=== PATIENT | male | born 1965 | race Hispanic/Latino ===

== ENCOUNTER → 2018-09-19 | Outpatient (CLI) | payer OTHER ==
[2018-09-19 16:57] LABS: HEMOGLOBIN A1C 6.1 % (4.0-6.0)
[2018-09-19 17:04] LABS: ALBUMIN 3.7 g/dL (3.5-5.0); BILIRUBIN,TOTAL 0.5 mg/dL (0.2-1.0); CREATININE 0.9 mg/dL (0.5-1.5); POTASSIUM 4.7 mmol/L (3.5-5.1); TOTAL PROTEIN, SERUM 7.4 g/dL (6.0-8.3)
== END | disposition home or self-care (01) ==
LOC: RAH 16:13
PROVIDERS: ATTEND Family Medicine
DX: R73.9 Hyperglycemia, unspecified (principal); E78.2 Mixed hyperlipidemia
CPT/HCPCS: 36415; 71046; 80053; 80061; 83036

== ENCOUNTER 2019-01-01 10:37 | Observation (INO) | payer OTHER ==
[~2019-01-01] VITALS: Ht 185.4 cm; Wt 157.1 kg
[2019-01-01 11:03] LABS: BASOPHILS % (AUTO) 0.5 % (0.0-5.0); EOSINOPHILS % (AUTO) 0.1 % (0.0-8.0); LYMPHOCYTES % (AUTO) 16.1 % (21.0-51.0); MEAN CORPUSCULAR HEMOGLOBIN 28.5 pg (27.0-33.0); MEAN CORPUSCULAR HGB CONC 34.1 g/dL (32.0-36.0); MEAN CORPUSCULAR VOLUME 83.5 fL (79-99); MONOCYTES % (AUTO) 5.4 % (3.0-13.0); NEUTROPHILS % (AUTO) 77.9 % (40.0-77.0); PLATELET COUNT (AUTO) 114 K/uL (130-400); RED BLOOD CELL COUNT(AUTO) 5.27 MIL/uL (4.50-6.20); RED CELL DISTRIBUTION WIDTH 13.9 % (11.0-15.5); WHITE BLOOD COUNT (AUTO) 5.2 K/uL (4.8-10.8)
[2019-01-01 11:10] LABS: CREATININE 1.4 mg/dL (0.5-1.5); POTASSIUM 4.2 mmol/L (3.5-5.1)
[2019-01-01 11:14] LABS: ALBUMIN 3.9 g/dL (3.5-5.0); BILIRUBIN,TOTAL 0.5 mg/dL (0.2-1.0); TOTAL PROTEIN, SERUM 7.8 g/dL (6.0-8.3)
[2019-01-01] MEDS ORDERED: ONDANSETRON HCL 4 MG/2 ML VIAL ONE (11:15)
[2019-01-01] MEDS ORDERED: MORPHINE SULFATE 2 MG/ML 1ML SYG ONE (11:16)
[2019-01-01 11:29] LABS: PLATELET MORPHOLOGY COMMENT SLIGHTLY DECREASED
[2019-01-01 12:09] LABS: APPEARANCE,URINE Clear (CLEAR); BILIRUBIN,URINE Negative (NEGATIVE); COLOR,URINE Yellow (YELLOW); GLUCOSE, URINE (UA) Negative (NEGATIVE); KETONES,URINE Trace mg/dL (NEGATIVE); LEUKOCYTE ESTERASE ,URINE Negative (NEGATIVE); NITRATE,URINE Negative (NEGATIVE); OCCULT BLOOD,URINE Negative (NEGATIVE); PROTEIN,URINE Negative (NEGATIVE)
[2019-01-01] MEDS ORDERED: SODIUM CHLORIDE 0.9% 1000ML 1,000 ML IV ONE (16:05)
[2019-01-01] MEDS ORDERED: MEPERIDINE-PF 25 MG/ML SYG IV PRN (16:30)
[2019-01-01] MEDS: SODIUM CHLORIDE 0.9% 1000ML 1,000 ML IV SCH (16:30)
[2019-01-01 20:15] VITALS: BP 151/83
--- NOTE | 2019-01-01 20:50 | NUR ---
ADMIT PT ADMITTED TO ROOM 412, AAOX2. CLAIMS OF ABDOMINAL PAINS MOSTLY ON THE RIGHT LOWER QUADRANT OF THE ABDOMEN. CONTINUED IVF FROM ER OF [facility] REGULATED AT 85CC/HR. PLACED PT ON CLEAR LIQUID DIET. ADMISSION CARE DONE. ADMISSION DATA BASE COMPLETED. MEDICATED WITH DEMEROL AND ZOFRAN IV. KEPT COMFORTABLE IN BED. ORIENTED TO ROOM AND UNIT. IN FOR MORE CARE AND MANAGEMENT. WILL RE-ASSESS PT. Addendum: 01/02/19 at 0031 by KELVER MONTERROSO RN RN Amended: Links added.
[2019-01-01] MEDS: ONDANSETRON HCL 4 MG/2 ML VIAL IVP PRN (20:52)
[2019-01-01] MEDS: MEPERIDINE-PF 50 MG/ML SYG IVP PRN (20:53)
[2019-01-01 23:42] VITALS: BP 129/72
--- NOTE | 2019-01-02 02:00 | NUR ---
ROUNDS PT RESTING WELL. NO DISTRESS NOTED. KEPT UNDISTURBED FOR NOW. WILL MONITOR PT. CALL LIGHT WITHIN REACH. SPOUSE AT BEDSIDE.
[2019-01-02 04:00] VITALS: BP 127/62
[2019-01-02] MEDS: SODIUM CHLORIDE 0.9% 1000ML 1,000 ML IV SCH (04:16)
--- NOTE | 2019-01-02 06:00 | NUR ---
ROUNDS PT RESTING WELL. DENIES ANY CONCERNS AT THIS TIME. NO DISTRESS NOTED. KEPT COMFORTABLE. FOR MORE CARE.
[2019-01-02 08:06] VITALS: BP 146/80
[2019-01-02] MEDS ORDERED: PANTOPRAZOLE 40 MG/VIAL IVP SCH (09:00)
[2019-01-02] MEDS: ONDANSETRON HCL 4 MG/2 ML VIAL IVP PRN ×3 (09:20→23:42)
[2019-01-02] MEDS: FAMOTIDINE/PF 20 MG/2 ML VIAL IV SCH ×2 (09:20→20:56)
[2019-01-02] MEDS: MEPERIDINE-PF 50 MG/ML SYG IVP PRN ×3 (09:20→23:46)
--- NOTE | 2019-01-02 11:00 | NUR ---
GI CONSULT SPOKE TO DR. ARIZMENDI, WILL PLACE ORDERS FOR POSSIBLE COLONOSCOPY PENDING DR. LUTZ'S RECOMMENDATIONS.
[2019-01-02 11:48] VITALS: BP 134/74
--- NOTE | 2019-01-02 13:10 | NUR ---
PER DR. LUTZ, NO SURGICAL INTERVENTION AT THIS TIME.
[2019-01-02 16:00] VITALS: BP 131/69
[2019-01-02] MEDS ORDERED: PEG 3350/NA SULF,BICARB,CL/KCL 4000 ML SOLN PO SCH (17:00)
[2019-01-02 18:13] LABS: BASOPHILS % (AUTO) 0.7 % (0.0-5.0); EOSINOPHILS % (AUTO) 1.9 % (0.0-8.0); LYMPHOCYTES % (AUTO) 33.2 % (21.0-51.0); MEAN CORPUSCULAR HEMOGLOBIN 28.4 pg (27.0-33.0); MEAN CORPUSCULAR HGB CONC 33.2 g/dL (32.0-36.0); MEAN CORPUSCULAR VOLUME 85.6 fL (79-99); MONOCYTES % (AUTO) 10.3 % (3.0-13.0); NEUTROPHILS % (AUTO) 53.9 % (40.0-77.0); NUCLEATED RED BLOOD CELLS 0.1 % (0.0-0.19); PLATELET COUNT (AUTO) 103 K/uL (130-400); RED CELL DISTRIBUTION WIDTH 14.4 % (11.0-15.5); WHITE BLOOD COUNT (AUTO) 5.7 K/uL (4.8-10.8)
[2019-01-02 18:22] LABS: CREATININE 1.8 mg/dL (0.5-1.5); INR 1.08 (0.85-1.15); POTASSIUM 3.9 mmol/L (3.5-5.1); PROTHROMBIN TIME 11.3 SEC (9.6-11.6)
--- NOTE | 2019-01-02 19:05 | NUR ---
cm note met with patient and spouse/family. pt resides at home with spouse, independent with adls/ambulation. no dme/ no services. dc plan is back home at time of dc. no dc needs. Addendum: 01/02/19 at 1906 by QUITA REYES CM Amended: Links added.
[2019-01-02 19:30] VITALS: BP 165/72
--- NOTE | 2019-01-02 20:56 | NUR ---
MEDS SHIFT ASSESSMENT DONE, PLEASE REFER TO CHART. DUE MEDS ADMINISTERED, TOLERATED WELL. CONTINUED GI PREP OF GOLYTELY FOR COLONOSCOPY IN AM. PROVIDED APPLE JUICE KATHLEEN ROSS TO TAKE. INSTRUCTED TO BE NURSING RESIDENT[O POST MN. INSTRUCTED TO FINISH GOLYTELY BEFORE MN. WILL MONITOR PT. Addendum: 01/02/19 at 2149 by KLEVER MONTERROSO RN RN Amended: Links added.
[2019-01-02 23:00] VITALS: BP 147/74
[2019-01-02] MEDS ORDERED: EXCEES PO (23:09)
--- NOTE | 2019-01-02 23:42 | NUR ---
PAIN PT CALLS AND COMPLAINTS OF RT LOWER QUAD OF THE ABDOMEN PAIN. MEDICATED WITH DEMEROL AND ZOFRAN IV. KEPT RESTED AND COMFORTABLE IN BED. STOOL INSPECTED AND NOTED TO STILL HAVE SMALL AMOUNTS OF SEDIMENT AND VERY LIGHT YELLOW IN COLOR. RE-ITERATED TO BE NPO POST MN. WILL RE-ASSESS PT. CALL LIGHT WITHIN REACH. Addendum: 01/03/19 at 0020 by KLEVER MONTERROSO RN RN Amended: Links added.
[2019-01-03] VITALS (21 sets, daily range): BP systolic 142–182; BP diastolic 68–103
--- NOTE | 2019-01-03 02:00 | NUR ---
ROUNDS PT RESTING WELL, SLEPT AT INTERVALS. NO DISTRESS NOTED. KEPT NPO. WILL MONITOR PT. CALL LIGHT WITHIN REACH. SPOUSE ASLEEP AT BEDSIDE.
[2019-01-03] MEDS: SODIUM CHLORIDE 0.9% 1000ML 1,000 ML IV SCH ×2 (03:48→05:29)
--- NOTE | 2019-01-03 05:30 | NUR ---
CONSENT NEW IVF BAG RAFIA. PT SIGNED CONSENT FOR PROCEDURE TODAY, WITNESSED BY COUNSELOR EDUCATION PROFESSOR. FORM PLACED IN CHART. KEPT PT NPO. FOR MORE CARE AND MANAGEMENT.
--- NOTE | 2019-01-03 07:00 | NUR ---
PENDING COLONOSCOPY PER PATIENT, STOOLS ARE LIQUID, "NO SOLID OR CHUNKS", CLEAR GREEN WATER . PER SCHEDULING, COLONOSCOPY AT 6:30AM. WILL CALL DEPARTMENT TO WHEN PATIENT WILL BE TRANSFERRED TO GI LAB.
[2019-01-03] MEDS: FAMOTIDINE/PF 20 MG/2 ML VIAL IV SCH (09:00)
[2019-01-03] MEDS ORDERED: KETOROLAC TROMETHAMINE 30MG/ML IV SCH (09:15)
[2019-01-03] MEDS ORDERED: PROPOFOL 10 MG/ML 20ML VIAL IV ONE (12:46)
--- NOTE | 2019-01-03 18:30 | NUR ---
DISCHARGE DISCHARGE TEACHING DONE WITH PATIENT AND FWIFE USING TEACHBACK METHOD, VERBALIZED UNDERSTANDING. NO NOTED SOB OR DISTRESS. DIET TEACHING DONE WITH PATIENT, VERBALIZED UNDERSTANDING. PT AWARE OF NEED TO SET UP APPOINTMENT WITH DR. WITT AND DR. ARIZMENDI. IV REMOVED, CATH TIP INTACT. PENDING TO BE WHEELED DOWNSTAIRS AND TRANSFER OUT IN PRIVATE VEHICLE.
== END 2019-01-03 18:35 | disposition home or self-care (01) ==
LOC: EDH 10:37 → EDHIP 15:40 → 4BH 19:52
PROVIDERS: ADMIT Family Medicine; ATTEND Family Medicine
DX: K57.90 Diverticulosis of intestine, part unspecified, without perforation or abscess without bleeding (principal); K64.0 First degree hemorrhoids; R11.2 Nausea with vomiting, unspecified; Z90.49 Acquired absence of other specified parts of digestive tract; Z79.899 Other long term (current) drug therapy
CPT/HCPCS: 36415 ×2; 45378; 71046; 74176; 80048; 80053; 81003; 82150; 83690; 85025 ×2; 85610; 87040 ×2; 93005; 96361; 96374; 96375 ×3; 96376 ×2; 99284; G0378 ×50; J1885; J2175 ×4; J2405 ×5; J2704; J3490 ×3; J7030 ×3; C9113

== ENCOUNTER 2020-01-17 18:16 | Emergency (ER) | payer OTHER ==
[~2020-01-17 18:16] MED LIST: EXCEES PO
[2020-01-17] MEDS ORDERED: TETANUS/DIPHTHERIA TOXOID [ADULT] 0.5 ML VIAL IM ONE (18:17)
[2020-01-17 18:53] LABS: BASOPHILS % (AUTO) 0.7 % (0.0-5.0); EOSINOPHILS % (AUTO) 2.4 % (0.0-8.0); MEAN CORPUSCULAR HEMOGLOBIN 27.7 pg (27.0-33.0); MEAN CORPUSCULAR HGB CONC 32.3 g/dL (32.0-36.0); MEAN CORPUSCULAR VOLUME 85.7 fL (79-99); MONOCYTES % (AUTO) 7.1 % (3.0-13.0); NEUTROPHILS % (AUTO) 38.6 % (40.0-77.0); PLATELET COUNT (AUTO) 143 K/uL (130-400); RED BLOOD CELL COUNT(AUTO) 5.02 MIL/uL (4.50-6.20); RED CELL DISTRIBUTION WIDTH 14.3 % (11.0-15.5); WHITE BLOOD COUNT (AUTO) 5.8 K/uL (4.8-10.8)
[2020-01-17 19:08] LABS: CARBON DIOXIDE 28 mmol/L (21-32); CHLORIDE 107 mmol/L (101-111); CREATININE 1.1 mg/dL (0.5-1.5); GLOMERULAR FILTR. RATE CALC 73 mL/min (>60); GLUCOSE,RANDOM 101 mg/dL (70-105); INR 0.99 (0.85-1.15); PARTIAL THROMBOPLASTIN TIME 26.4 SEC (26.3-35.5); PROTHROMBIN TIME 10.7 SEC (9.6-11.6); SODIUM SERUM 141 mmol/L (136-145); UREA NITROGEN, BLOOD 17 mg/dL (7-18)
[2020-01-17 19:11] LABS: APPEARANCE,URINE Clear (CLEAR); BILIRUBIN,URINE Negative (NEGATIVE); COLOR,URINE Dark Yellow (YELLOW); GLUCOSE, URINE (UA) Negative (NEGATIVE); KETONES,URINE Negative (NEGATIVE); LEUKOCYTE ESTERASE ,URINE Negative (NEGATIVE); NITRATE,URINE Negative (NEGATIVE); OCCULT BLOOD,URINE Negative (NEGATIVE); PROTEIN,URINE Negative (NEGATIVE)
[2020-01-17 19:14] LABS: ALANINE AMINOTRANSFERASE 50 U/L (12-78); ALBUMIN 3.7 g/dL (3.5-5.0); ALCOHOL, BLOOD < 3 mg/dL (0-10); AMYLASE 35 U/L (25-115); ASPARTATE AMINOTRANSFERASE 28 U/L (10-37); BILIRUBIN,TOTAL 0.3 mg/dL (0.2-1.0); CREATINE KINASE, TOTAL 175 U/L (21-232); LIPASE 97 U/L (114-286); TOTAL PROTEIN, SERUM 7.3 g/dL (6.0-8.3)
[2020-01-17 19:20] LABS: AMPHET/METH SCREEN,URINE NEGATIVE (NEGATIVE); BARBITURATE SCREEN, URINE NEGATIVE (NEGATIVE); BENZODIAZEPINES SCREEN,URINE NEGATIVE (NEGATIVE); CANNABINOID SCREEN,URINE NEGATIVE (NEGATIVE); COCAINE SCREEN,URINE NEGATIVE (NEGATIVE); OPIATE SCREEN,URINE NEGATIVE (NEGATIVE); PHENCYCLIDINE SCREEN,URINE NEGATIVE (NEGATIVE)
[2020-01-17] MEDS ORDERED: KETOROLAC TROMETHAMINE 30MG/ML ONE (20:22)
[2020-01-17] MEDS ORDERED: CYCLOBENZAPRINE HCL 10 MG TABLET ONE (20:23)
== END 2020-01-17 21:00 | disposition home or self-care (01) ==
LOC: EDH 18:16
DX: S00.83XA Contusion of other part of head, initial encounter (principal); M54.2 Cervicalgia; R20.0 Anesthesia of skin; R03.0 Elevated blood-pressure reading, without diagnosis of hypertension; Z90.49 Acquired absence of other specified parts of digestive tract; W20.8XXA Other cause of strike by thrown, projected or falling object, initial encounter; Y93.89 Activity, other specified; Y92.89 Other specified places as the place of occurrence of the external cause; Y99.8 Other external cause status
CPT/HCPCS: 36415; 70450; 72125; 80053; 80305; 81003; 82150; 82550; 83690; 84484; 85025; 85610; 85730; 90471; 90714; 93005; 96374; 99285; J1885

== ENCOUNTER 2020-04-21 00:07 | Inpatient (IN) | payer OTHER ==
[~2020-04-21] VITALS: Ht 185.4 cm; Wt 158.3 kg
[2020-04-21 00:24] LABS: BASOPHILS % (AUTO) 0.9 % (0.0-5.0); EOSINOPHILS % (AUTO) 2.9 % (0.0-8.0); HEMATOCRIT 42.3 % (42-54); MEAN CORPUSCULAR HEMOGLOBIN 27.6 pg (27.0-33.0); MEAN CORPUSCULAR HGB CONC 33.3 g/dL (32.0-36.0); MEAN CORPUSCULAR VOLUME 82.9 fL (79-99); MONOCYTES % (AUTO) 6.5 % (3.0-13.0); NEUTROPHILS % (AUTO) 40.8 % (40.0-77.0); PLATELET COUNT (AUTO) 124 K/uL (130-400); RED CELL DISTRIBUTION WIDTH 13.7 % (11.0-15.5)
[2020-04-21 00:34] LABS: CREATININE 1.1 mg/dL (0.5-1.5); POTASSIUM 4.2 mmol/L (3.5-5.1)
[2020-04-21 00:36] LABS: INR 1.02 (0.85-1.15); PROTHROMBIN TIME 10.9 SEC (9.6-11.6)
[2020-04-21 00:38] LABS: ALBUMIN 3.4 g/dL (3.5-5.0); BILIRUBIN,TOTAL 0.4 mg/dL (0.2-1.0); PARTIAL THROMBOPLASTIN TIME 21.9 SEC (26.3-35.5); TOTAL PROTEIN, SERUM 7.3 g/dL (6.0-8.3)
[2020-04-21] MEDS ORDERED: NITROGLYCERIN 1GM/1 INCH PACKET TD ONE (00:42)
[2020-04-21] MEDS ORDERED: ASPIRIN 325 MG TABLET ONE (00:42)
[2020-04-21] MEDS ORDERED: ONDANSETRON HCL 4 MG/2 ML VIAL ONE (00:42)
[2020-04-21] MEDS ORDERED: MAG HYDROX/AL HYDROX/SIMETH ES 30 ML SUSP UDCUP PO PRN (03:30)
[2020-04-21] MEDS: SODIUM CHLORIDE 0.9% 1000ML 1,000 ML IV SCH ×2 (03:30→17:17)
[2020-04-21] MEDS ORDERED: DiphenhydrAMINE HCL 50 MG/ML VIAL IV PRN (03:30)
[2020-04-21] MEDS ORDERED: ONDANSETRON HCL 4 MG/2 ML VIAL IV PRN (03:30)
[2020-04-21] MEDS ORDERED: ZOLPIDEM TARTRATE 5 MG TAB PO PRN (03:30)
[2020-04-21] MEDS ORDERED: ACETAMINOPHEN 325 MG TAB PO PRN (03:30)
[2020-04-21] MEDS: NITROGLYCERIN 1GM/1 INCH PACKET TD SCH ×3 (03:45→19:45)
[2020-04-21] MEDS ORDERED: HYDRALAZINE HCL 20 MG/ML VIAL IV PRN (03:45)
[2020-04-21 04:08] LABS: CHOLESTEROL 249 mg/dL (<200); HDL CHOLESTEROL 135 mg/dL (29-71); LDL DIRECT 158 mg/dL (0-99); TRIGLYCERIDES 237 mg/dL (30-200)
[2020-04-21] MEDS ORDERED: ACETAMINOPHEN 325 MG TAB ONE (07:32)
[2020-04-21] MEDS ORDERED: ASPIRIN 81MG TAB.CHEW ONE (08:57)
[2020-04-21] MEDS ORDERED: HEPARIN SODIUM 5000UNIT/ML 1ML VIAL ONE (08:57)
[2020-04-21] MEDS ORDERED: ASPIRIN 81 MG EC TAB PO SCH (09:00)
[2020-04-21] MEDS: FAMOTIDINE 20MG TAB 20 MG TAB PO SCH ×2 (09:00→20:25)
[2020-04-21] MEDS: HEPARIN SODIUM 5000UNIT/ML 1ML VIAL SQ SCH ×2 (09:00→20:26)
[2020-04-21] MEDS ORDERED: METOPROLOL SUCCINATE 50 MG TAB.SR.24H PO SCH (11:00)
[2020-04-21] MEDS ORDERED: REGADENOSON 0.4 MG/5 ML PF SYG IVP SCH (11:30)
[2020-04-21 12:21] VITALS: BP 129/69
[2020-04-21] MEDS ORDERED: PANT20TA18 PO (12:23)
[2020-04-21] MEDS ORDERED: METO25TA6 PO (12:23)
[2020-04-21] MEDS ORDERED: ASPI-1197 PO (12:23)
[2020-04-21] MEDS ORDERED: EXCEDRIN EXTRA STRENGTH PO PRN (13:00)
[2020-04-21] MEDS ORDERED: IOHEXOL 350 MG/ML 100ML INFUS..BTL IV ONE (14:00)
[2020-04-21 19:45] VITALS: BP 121/51
[2020-04-21] MEDS: METOPROLOL TARTRATE 25 MG TAB PO SCH (20:25)
[2020-04-21] MEDS: ATORVASTATIN CALCIUM 40 MG TABLET PO SCH (20:25)
[2020-04-21] MEDS: ENOXAPARIN SODIUM 120 MG/0.8ML SQ SCH (20:26)
[2020-04-21] MEDS: ENOXAPARIN SODIUM 30 MG/0.3 ML SQ SCH (20:27)
[2020-04-21] MEDS ORDERED: ATORVASTATIN CALCIUM 20 MG TABLET PO SCH (21:00)
[2020-04-21 23:12] VITALS: BP 131/64
[2020-04-22] MEDS: NITROGLYCERIN 1GM/1 INCH PACKET TD SCH ×3 (02:55→19:45)
[2020-04-22 03:12] VITALS: BP 133/70
[2020-04-22] MEDS: SODIUM CHLORIDE 0.9% 1000ML 1,000 ML IV SCH ×3 (03:42→22:38)
[2020-04-22 06:13] LABS: EOSINOPHILS % (AUTO) 2.8 % (0.0-8.0); HEMATOCRIT 40.9 % (42-54); LYMPHOCYTES % (AUTO) 47.9 % (21.0-51.0); MEAN CORPUSCULAR HEMOGLOBIN 27.1 pg (27.0-33.0); MEAN CORPUSCULAR HGB CONC 32.5 g/dL (32.0-36.0); MEAN CORPUSCULAR VOLUME 83.5 fL (79-99); MONOCYTES % (AUTO) 5.6 % (3.0-13.0); NEUTROPHILS % (AUTO) 42.2 % (40.0-77.0); PLATELET COUNT (AUTO) 168 K/uL (130-400); RED CELL DISTRIBUTION WIDTH 13.6 % (11.0-15.5); WHITE BLOOD COUNT (AUTO) 6.1 K/uL (4.8-10.8)
[2020-04-22 06:28] LABS: CREATININE 1.1 mg/dL (0.5-1.5); POTASSIUM 3.7 mmol/L (3.5-5.1)
[2020-04-22 07:45] VITALS: BP 152/74
[2020-04-22] MEDS: METOPROLOL TARTRATE 25 MG TAB PO SCH ×2 (09:05→20:46)
[2020-04-22] MEDS: ASPIRIN 81MG TAB.CHEW PO SCH (10:48)
[2020-04-22] MEDS: FAMOTIDINE 20MG TAB 20 MG TAB PO SCH ×2 (10:49→20:46)
[2020-04-22] MEDS: ENOXAPARIN SODIUM 30 MG/0.3 ML SQ SCH ×2 (10:55→20:47)
[2020-04-22] MEDS: ENOXAPARIN SODIUM 120 MG/0.8ML SQ SCH ×2 (10:56→20:47)
[2020-04-22 16:30] VITALS: BP 134/67
[2020-04-22 19:55] VITALS: BP 138/69
[2020-04-22] MEDS: ATORVASTATIN CALCIUM 40 MG TABLET PO SCH (20:46)
[2020-04-23 00:23] VITALS: BP 144/74
[2020-04-23] MEDS: NITROGLYCERIN 1GM/1 INCH PACKET TD SCH ×3 (02:10→19:45)
[2020-04-23 03:52] VITALS: BP 144/72
[2020-04-23] MEDS: MORPHINE SULFATE 2 MG/ML 1ML SYG IV PRN ×3 (04:08→20:08)
[2020-04-23 05:06] LABS: BASOPHILS % (AUTO) 0.9 % (0.0-5.0); EOSINOPHILS % (AUTO) 3.5 % (0.0-8.0); HEMATOCRIT 38.8 % (42-54); MEAN CORPUSCULAR HEMOGLOBIN 27.3 pg (27.0-33.0); MEAN CORPUSCULAR HGB CONC 32.7 g/dL (32.0-36.0); MEAN CORPUSCULAR VOLUME 83.4 fL (79-99); MONOCYTES % (AUTO) 7.1 % (3.0-13.0); NEUTROPHILS % (AUTO) 35.9 % (40.0-77.0); PLATELET COUNT (AUTO) 159 K/uL (130-400); RED BLOOD CELL COUNT(AUTO) 4.65 MIL/uL (4.50-6.20); RED CELL DISTRIBUTION WIDTH 13.3 % (11.0-15.5); WHITE BLOOD COUNT (AUTO) 5.4 K/uL (4.8-10.8)
[2020-04-23 05:25] LABS: INR 1.1 (0.85-1.15); PROTHROMBIN TIME 11.7 SEC (9.6-11.6)
[2020-04-23 05:27] LABS: PARTIAL THROMBOPLASTIN TIME 33.6 SEC (26.3-35.5)
[2020-04-23 05:32] LABS: ALBUMIN 3.1 g/dL (3.5-5.0); BILIRUBIN,TOTAL 0.6 mg/dL (0.2-1.0); CREATININE 1.2 mg/dL (0.5-1.5); MAGNESIUM 1.9 mg/dL (1.80-2.40); PHOSPHORUS 3.5 mg/dL (2.5-4.9); POTASSIUM 4.1 mmol/L (3.5-5.1); TOTAL PROTEIN, SERUM 6.6 g/dL (6.0-8.3)
[2020-04-23] MEDS: SODIUM CHLORIDE 0.9% 1000ML 1,000 ML IV SCH ×2 (06:13→20:44)
[2020-04-23 09:05] VITALS: BP 143/74
[2020-04-23] MEDS: ASPIRIN 81MG TAB.CHEW PO SCH (10:29)
[2020-04-23] MEDS: METOPROLOL TARTRATE 25 MG TAB PO SCH ×2 (10:29→20:45)
[2020-04-23] MEDS: FAMOTIDINE 20MG TAB 20 MG TAB PO SCH ×2 (10:29→20:45)
[2020-04-23 12:00] VITALS: BP 131/72
[2020-04-23] MEDS ORDERED: ENOXAPARIN SODIUM 120 MG/0.8ML SQ SCH (12:30)
[2020-04-23 16:00] VITALS: BP 141/72
[2020-04-23 20:00] VITALS: BP 166/86
[2020-04-23] MEDS: APIXABAN 5 MG TABLET PO SCH (20:44)
[2020-04-23] MEDS: ATORVASTATIN CALCIUM 40 MG TABLET PO SCH (20:45)
[2020-04-24] VITALS: BP 124/65
[2020-04-24] MEDS: NITROGLYCERIN 1GM/1 INCH PACKET TD SCH ×2 (03:45→12:56)
[2020-04-24 04:04] VITALS: BP 157/72
[2020-04-24 05:39] LABS: HEMATOCRIT 38.9 % (42-54); MEAN CORPUSCULAR HEMOGLOBIN 27.1 pg (27.0-33.0); MEAN CORPUSCULAR HGB CONC 32.9 g/dL (32.0-36.0); MEAN CORPUSCULAR VOLUME 82.4 fL (79-99); RED BLOOD CELL COUNT(AUTO) 4.72 MIL/uL (4.50-6.20); RED CELL DISTRIBUTION WIDTH 13.2 % (11.0-15.5); WHITE BLOOD COUNT (AUTO) 5.4 K/uL (4.8-10.8)
[2020-04-24 05:45] LABS: CREATININE 1.1 mg/dL (0.5-1.5); POTASSIUM 3.7 mmol/L (3.5-5.1)
[2020-04-24 08:23] VITALS: BP 147/81
[2020-04-24] MEDS: METOPROLOL TARTRATE 25 MG TAB PO SCH (09:00)
[2020-04-24] MEDS: APIXABAN 5 MG TABLET PO SCH (09:33)
[2020-04-24] MEDS: ASPIRIN 81MG TAB.CHEW PO SCH (09:34)
[2020-04-24] MEDS: FAMOTIDINE 20MG TAB 20 MG TAB PO SCH (09:34)
[2020-04-24] MEDS ORDERED: TRAMADOL HCL 50 MG TABLET PO PRN ×2 (11:00→11:15)
[2020-04-24] MEDS ORDERED: KETOROLAC TROMETHAMINE 30MG/ML IM SCH ×2 (11:00→11:15)
[2020-04-24] MEDS ORDERED: APIX5TAB PO (11:00)
[2020-04-24 11:25] VITALS: BP 148/84
[2020-04-24 11:27] VITALS: BP 145/79
[2020-04-24 11:30] VITALS: BP 146/77
[2020-04-24] MEDS ORDERED: IBUP-2070 PO (12:55)
== END 2020-04-24 18:59 | disposition home or self-care (01) | DRG 176 ==
LOC: EDH 00:07 → OBSVTOIN 03:25 → EDHIP 03:25 → 3DH 11:56 → 3BH 04-23 09:28
PROVIDERS: ADMIT Internal Medicine Critical Care Medicine; ATTEND Internal Medicine Critical Care Medicine
DX: I26.99 Other pulmonary embolism without acute cor pulmonale (principal); I20.0 Unstable angina; Z68.42 Body mass index [BMI] 45.0-49.9, adult; I82.402 Acute embolism and thrombosis of unspecified deep veins of left lower extremity; I50.22 Chronic systolic (congestive) heart failure; E66.2 Morbid (severe) obesity with alveolar hypoventilation; K29.70 Gastritis, unspecified, without bleeding; E78.2 Mixed hyperlipidemia; M94.0 Chondrocostal junction syndrome [Tietze]; R74.01 Elevation of levels of liver transaminase levels; I11.0 Hypertensive heart disease with heart failure; R73.03 Prediabetes; M54.9 Dorsalgia, unspecified; Z20.822 Contact with and (suspected) exposure to COVID-19; Z90.49 Acquired absence of other specified parts of digestive tract; Z86.718 Personal history of other venous thrombosis and embolism; Z86.711 Personal history of pulmonary embolism; Z79.899 Other long term (current) drug therapy; Z83.3 Family history of diabetes mellitus; Z82.49 Family history of ischemic heart disease and other diseases of the circulatory system; Z83.49 Family history of other endocrine, nutritional and metabolic diseases
CPT/HCPCS: 36415; 71045; 71275; 78452; 80048; 80053; 80061; 82550; 83036; 83690; 83735; 83880; 84100; 84439; 84443; 84484; 85025; 85027; 85378; 85610; 85730; 87426; 93005; 93017; 93306; 93356; 93970; 94760; 96374; A9500; G0378; J1644; J1650; J1885; J2405; J2785; J7030; Q9967; U0003

== ENCOUNTER 2020-06-24 06:37 | Observation (INO) | payer OTHER ==
[~2020-06-24] VITALS: Ht 185.4 cm; Wt 140.2 kg
[~2020-06-24 06:37] MED LIST changes: +APIX5TAB PO; +ASPI-1197 PO; -EXCEES PO; +IBUP-2070 PO; +METO25TA6 PO; +PANT20TA18 PO
[2020-06-24] MEDS ORDERED: ASPIRIN 325 MG TABLET ONE (06:56)
[2020-06-24 06:58] LABS: BASOPHILS % (AUTO) 0.6 % (0.0-5.0); EOSINOPHILS % (AUTO) 2.2 % (0.0-8.0); HEMATOCRIT 44.6 % (42-54); LYMPHOCYTES % (AUTO) 51.3 % (21.0-51.0); MEAN CORPUSCULAR HEMOGLOBIN 27.4 pg (27.0-33.0); MEAN CORPUSCULAR HGB CONC 32.5 g/dL (32.0-36.0); MEAN CORPUSCULAR VOLUME 84.2 fL (79-99); MONOCYTES % (AUTO) 8.6 % (3.0-13.0); NEUTROPHILS % (AUTO) 36.7 % (40.0-77.0); PLATELET COUNT (AUTO) 153 K/uL (130-400); RED CELL DISTRIBUTION WIDTH 13.1 % (11.0-15.5); WHITE BLOOD COUNT (AUTO) 6.7 K/uL (4.8-10.8)
[2020-06-24 07:08] LABS: INR 1.06 (0.85-1.15); PROTHROMBIN TIME 11.5 SEC (9.6-11.6)
[2020-06-24 07:09] LABS: PARTIAL THROMBOPLASTIN TIME 28.6 SEC (26.3-35.5)
[2020-06-24 07:15] LABS: ALBUMIN 3.5 g/dL (3.5-5.0); BILIRUBIN,TOTAL 0.5 mg/dL (0.2-1.0); CREATININE 1.1 mg/dL (0.5-1.5); POTASSIUM 3.9 mmol/L (3.5-5.1); TOTAL PROTEIN, SERUM 7.2 g/dL (6.0-8.3)
[2020-06-24 08:44] LABS: APPEARANCE,URINE Clear (CLEAR); BILIRUBIN,URINE Small (NEGATIVE); COLOR,URINE Dark Yellow (YELLOW); GLUCOSE, URINE (UA) Negative (NEGATIVE); KETONES,URINE Negative (NEGATIVE); LEUKOCYTE ESTERASE ,URINE Negative (NEGATIVE); NITRATE,URINE Negative (NEGATIVE); OCCULT BLOOD,URINE Negative (NEGATIVE); PH,URINE 5.5 (5.0-8.0); PROTEIN,URINE Negative (NEGATIVE)
[2020-06-24] MEDS ORDERED: KCL 20 MEQ ERTAB PO PRN (09:30)
[2020-06-24] MEDS ORDERED: MAGNESIUM 2GM PREMIX 50ML 50 ML IV PRN (09:30)
[2020-06-24] MEDS ORDERED: POTASSIUM CHLORIDE 10% ELIXIR 20 MEQ/15 ML UDCUP PO PRN (09:30)
[2020-06-24] MEDS ORDERED: LIDOCAINE HCL-MPF 1% 2ML VIAL IV PRN ×2 (09:30)
[2020-06-24] MEDS ORDERED: POTASSIUM CHLORIDE 20MEQ/100ML 100 ML IV PRN ×2 (09:30)
[2020-06-24] MEDS ORDERED: IOHEXOL-350 75 ML VIAL IV ONE (16:08)
[2020-06-24] MEDS ORDERED: PHARMACY COMMUNICATION MISC SCH (17:00)
[2020-06-24] MEDS ORDERED: COMPOUND PO MISCELLANEOUS 1 EACH MISC MISC PRN (17:15)
[2020-06-24] MEDS ORDERED: LIDO 2% VISC 30ML+MAG/AL/SIMETH 30ML+DICYCLOMINE 20MG 10ML PO PRN ×3 (17:15)
[2020-06-24] MEDS: METOPROLOL TARTRATE 25 MG TAB PO SCH (20:28)
[2020-06-24] MEDS: APIXABAN 5 MG TABLET PO SCH (20:28)
[2020-06-24] MEDS: LISINOPRIL 10 MG TABLET PO SCH (20:29)
[2020-06-24 20:36] VITALS: BP 147/70
[2020-06-24 20:55] VITALS: BP 147/70
[2020-06-25 00:31] VITALS: BP 134/64
[2020-06-25] MEDS ORDERED: VITAMIN D (03:28)
[2020-06-25] MEDS ORDERED: LISI10TA24 PO (03:28)
[2020-06-25 05:16] LABS: MEAN CORPUSCULAR HEMOGLOBIN 27.9 pg (27.0-33.0); MEAN CORPUSCULAR HGB CONC 33.5 g/dL (32.0-36.0); MEAN CORPUSCULAR VOLUME 83.2 fL (79-99); RED BLOOD CELL COUNT(AUTO) 4.81 MIL/uL (4.50-6.20); RED CELL DISTRIBUTION WIDTH 12.7 % (11.0-15.5); WHITE BLOOD COUNT (AUTO) 4.8 K/uL (4.8-10.8)
[2020-06-25 05:33] LABS: CREATININE 1.1 mg/dL (0.5-1.5); POTASSIUM 3.7 mmol/L (3.5-5.1)
[2020-06-25 05:44] VITALS: BP 132/65
[2020-06-25] MEDS: LEVOTHYROXINE 25 MCG TABLET PO SCH (06:31)
[2020-06-25] MEDS: PANTOPRAZOLE 40 MG TAB DR PO SCH (07:07)
[2020-06-25 07:57] VITALS: BP 133/75
[2020-06-25] MEDS: ASPIRIN 81 MG EC TAB PO SCH (08:22)
[2020-06-25] MEDS: METOPROLOL TARTRATE 25 MG TAB PO SCH ×2 (08:22→20:31)
[2020-06-25] MEDS: APIXABAN 5 MG TABLET PO SCH ×2 (08:23→20:31)
[2020-06-25 11:46] VITALS: BP 135/79
[2020-06-25 16:00] VITALS: BP 131/66
[2020-06-25 20:00] VITALS: BP 162/78
[2020-06-25] MEDS: LISINOPRIL 10 MG TABLET PO SCH (20:31)
[2020-06-26] VITALS: BP 137/70
[2020-06-26] MEDS ORDERED: ACETAMINOPHEN 325 MG TAB ONE (03:40)
[2020-06-26] MEDS ORDERED: ACETAMINOPHEN 325 MG TAB PO PRN (03:45)
[2020-06-26 03:47] VITALS: BP 119/56
[2020-06-26 04:30] LABS: HEMATOCRIT 41.4 % (42-54); MEAN CORPUSCULAR HEMOGLOBIN 27.6 pg (27.0-33.0); MEAN CORPUSCULAR HGB CONC 33.1 g/dL (32.0-36.0); MEAN CORPUSCULAR VOLUME 83.3 fL (79-99); RED BLOOD CELL COUNT(AUTO) 4.97 MIL/uL (4.50-6.20); RED CELL DISTRIBUTION WIDTH 12.9 % (11.0-15.5); WHITE BLOOD COUNT (AUTO) 5.1 K/uL (4.8-10.8)
[2020-06-26 04:47] LABS: MAGNESIUM 1.9 mg/dL (1.80-2.40); POTASSIUM 3.6 mmol/L (3.5-5.1)
[2020-06-26] MEDS: LEVOTHYROXINE 25 MCG TABLET PO SCH (06:08)
[2020-06-26] MEDS: PANTOPRAZOLE 40 MG TAB DR PO SCH (07:46)
[2020-06-26 08:00] VITALS: BP 132/54
[2020-06-26] MEDS: METOPROLOL TARTRATE 25 MG TAB PO SCH (09:07)
[2020-06-26] MEDS: ASPIRIN 81 MG EC TAB PO SCH (09:07)
[2020-06-26] MEDS: APIXABAN 5 MG TABLET PO SCH (09:07)
[2020-06-26 12:00] VITALS: BP 122/52
[2020-06-26 16:00] VITALS: BP 164/92
[2020-06-26] MEDS ORDERED: LEVO25TA9 PO (17:48)
[2020-08-12] MEDS ORDERED: METO25TA6 PO (11:43)
[2020-08-12] MEDS ORDERED: PANT40TA PO (11:43)
== END 2020-06-26 18:11 | disposition home or self-care (01) ==
LOC: EDH 06:37 → EDHIP 09:21 → 4DH 19:41
PROVIDERS: ADMIT Internal Medicine Critical Care Medicine; ATTEND Internal Medicine Critical Care Medicine
DX: R07.89 Other chest pain (principal); Z20.822 Contact with and (suspected) exposure to COVID-19; R00.2 Palpitations; I47.1 Supraventricular tachycardia; D68.59 Other primary thrombophilia; I10 Essential (primary) hypertension; E66.01 Morbid (severe) obesity due to excess calories; K21.9 Gastro-esophageal reflux disease without esophagitis; E03.9 Hypothyroidism, unspecified; E78.5 Hyperlipidemia, unspecified; F32.9 Major depressive disorder, single episode, unspecified; G47.33 Obstructive sleep apnea (adult) (pediatric); Z86.711 Personal history of pulmonary embolism; Z86.718 Personal history of other venous thrombosis and embolism; Z90.49 Acquired absence of other specified parts of digestive tract; Z79.01 Long term (current) use of anticoagulants; Z79.82 Long term (current) use of aspirin; Z79.899 Other long term (current) drug therapy; Z68.41 Body mass index [BMI] 40.0-44.9, adult
CPT/HCPCS: 36415 ×3; 71045; 71275; 80048 ×2; 80053; 81003; 82550; 83735; 83880; 84443; 84484 ×3; 85025; 85027 ×2; 85378; 85610; 85730; 87426; 93005; 93306; 93356; 93970; 94760 ×2; 99285; G0378 ×56; Q9967

== ENCOUNTER → 2020-07-26 | Outpatient (CLI) | payer OTHER ==
[~2020-07-26] MED LIST changes: +LEVO25TA9 PO; +LISI10TA24 PO; +VITAMIN D
[2020-07-26 13:55] LABS: BASOPHILS % (AUTO) 0.8 % (0.0-5.0); EOSINOPHILS % (AUTO) 3.2 % (0.0-8.0); HEMATOCRIT 44.5 % (42-54); LYMPHOCYTES % (AUTO) 48.3 % (21.0-51.0); MEAN CORPUSCULAR HGB CONC 31.9 g/dL (32.0-36.0); MEAN CORPUSCULAR VOLUME 84.6 fL (79-99); MONOCYTES % (AUTO) 8.4 % (3.0-13.0); NEUTROPHILS % (AUTO) 38.7 % (40.0-77.0); PLATELET COUNT (AUTO) 161 K/uL (130-400); RED BLOOD CELL COUNT(AUTO) 5.26 MIL/uL (4.50-6.20); RED CELL DISTRIBUTION WIDTH 13.3 % (11.0-15.5)
[2020-07-26 14:08] LABS: HEMOGLOBIN A1C 6.1 % (4.0-6.0)
[2020-07-26 14:56] LABS: ALBUMIN 3.6 g/dL (3.5-5.0); BILIRUBIN,TOTAL 0.3 mg/dL (0.2-1.0); POTASSIUM 4.4 mmol/L (3.5-5.1); T4 (THYROXINE) 7.4 ug/dL (4.7-13.3); THYROID STIMULATING HORMONE 2.63 uIU/mL (0.36-3.74)
== END | disposition home or self-care (01) ==
LOC: RAH 12:51
PROVIDERS: ATTEND Family Medicine
DX: R00.1 Bradycardia, unspecified (principal)
CPT/HCPCS: 36415; 80053; 80061; 82306; 82607; 83036; 84436; 84443; 84479; 85025

== ENCOUNTER → 2020-08-12 | Day surgery (SDC) | payer OTHER ==
[~2020-08-12] VITALS: Ht 185.4 cm; Wt 159.7 kg
[~2020-08-12] MED LIST changes: +LIDOCAINE HCL 1% 20 ML VIAL ONE; +PANT40TA PO; +PROPOFOL 10 MG/ML 20ML VIAL IV ONE; +SODIUM CHLORIDE 0.9% 1000ML 1,000 ML IV ONE
[2020-08-12 11:00] VITALS: BP 134/72
[2020-08-12 12:43] VITALS: BP 153/69
[2020-08-12 12:48] VITALS: BP 151/70
[2020-08-12 12:53] VITALS: BP 149/70
[2020-08-12 12:58] VITALS: BP 148/69
== END | disposition home or self-care (01) ==
LOC: ENDO 10:31
PROVIDERS: ATTEND Internal Medicine Gastroenterology
DX: K21.00 Gastro-esophageal reflux disease with esophagitis, without bleeding (principal); Z20.822 Contact with and (suspected) exposure to COVID-19; K29.00 Acute gastritis without bleeding; I10 Essential (primary) hypertension; E66.9 Obesity, unspecified; E03.9 Hypothyroidism, unspecified; I25.10 Atherosclerotic heart disease of native coronary artery without angina pectoris; I25.2 Old myocardial infarction; J45.909 Unspecified asthma, uncomplicated; R19.7 Diarrhea, unspecified; Z90.49 Acquired absence of other specified parts of digestive tract; Z87.891 Personal history of nicotine dependence; Z86.718 Personal history of other venous thrombosis and embolism; Z79.01 Long term (current) use of anticoagulants; Z79.82 Long term (current) use of aspirin; Z86.73 Personal history of transient ischemic attack (TIA), and cerebral infarction without residual deficits; Z82.49 Family history of ischemic heart disease and other diseases of the circulatory system; Z83.3 Family history of diabetes mellitus; Z80.41 Family history of malignant neoplasm of ovary; Z80.42 Family history of malignant neoplasm of prostate; Z80.1 Family history of malignant neoplasm of trachea, bronchus and lung; Z72.89 Other problems related to lifestyle; Z68.42 Body mass index [BMI] 45.0-49.9, adult
CPT/HCPCS: 43235; 87426; A4215; A4221; A4223; A4606; A4620; A4663; J2704; J7030 ×2; U0003

== ENCOUNTER → 2020-10-28 | Outpatient (CLI) | payer OTHER ==
[~2020-10-28] MED LIST changes: -IBUP-2070 PO; -LIDOCAINE HCL 1% 20 ML VIAL ONE; -PANT20TA18 PO; -PROPOFOL 10 MG/ML 20ML VIAL IV ONE; -SODIUM CHLORIDE 0.9% 1000ML 1,000 ML IV ONE
== END | disposition home or self-care (01) ==
LOC: RAH 13:41
PROVIDERS: ATTEND Internal Medicine Cardiovascular Disease
DX: I26.90 Septic pulmonary embolism without acute cor pulmonale (principal)
CPT/HCPCS: 71046

== ENCOUNTER → 2020-10-29 | Outpatient (CLI) | payer OTHER | END | disposition home or self-care (01) | LOC: RAH 13:14 | PROVIDERS: ATTEND Internal Medicine Cardiovascular Disease | DX: I87.2 Venous insufficiency (chronic) (peripheral) (principal); I26.01 Septic pulmonary embolism with acute cor pulmonale | CPT/HCPCS: 78582; 93970; A9540; A9558 ==

== ENCOUNTER → 2021-07-03 | Outpatient (CLI) | payer OTHER | END | disposition home or self-care (01) | LOC: RAH 12:55 | PROVIDERS: ATTEND Internal Medicine Cardiovascular Disease | DX: I82.412 Acute embolism and thrombosis of left femoral vein (principal) | CPT/HCPCS: 93970 ==

== ENCOUNTER → 2021-10-08 | Outpatient (CLI) | payer OTHER ==
[2021-10-08 15:38] LABS: ALBUMIN 3.2 g/dL (3.5-5.0); BILIRUBIN,TOTAL 0.4 mg/dL (0.2-1.0); CREATININE 0.9 mg/dL (0.5-1.5); TOTAL PROTEIN, SERUM 6.9 g/dL (6.0-8.3)
== END | disposition home or self-care (01) ==
LOC: RAH 14:32
PROVIDERS: ATTEND Family Medicine
DX: I82.492 Acute embolism and thrombosis of other specified deep vein of left lower extremity (principal); R06.02 Shortness of breath; R60.9 Edema, unspecified; J90 Pleural effusion, not elsewhere classified
CPT/HCPCS: 36415; 71046; 73560; 80053; 85378; 93971

== ENCOUNTER → 2022-01-02 | Outpatient (CLI) | payer OTHER ==
[2022-01-02 16:25] LABS: BASOPHILS % (AUTO) 0.7 % (0.0-5.0); EOSINOPHILS % (AUTO) 3.1 % (0.0-8.0); HEMATOCRIT 41.5 % (42-54); LYMPHOCYTES % (AUTO) 39.9 % (21.0-51.0); MEAN CORPUSCULAR HEMOGLOBIN 27.5 pg (27.0-33.0); MEAN CORPUSCULAR HGB CONC 33.5 g/dL (32.0-36.0); MEAN CORPUSCULAR VOLUME 82.2 fL (79-99); MONOCYTES % (AUTO) 8.2 % (3.0-13.0); NEUTROPHILS % (AUTO) 47.3 % (40.0-77.0); PLATELET COUNT (AUTO) 166 K/uL (130-400); RED BLOOD CELL COUNT(AUTO) 5.05 MIL/uL (4.50-6.20); RED CELL DISTRIBUTION WIDTH 14.4 % (11.0-15.5); WHITE BLOOD COUNT (AUTO) 7.5 K/uL (4.8-10.8)
[2022-01-02 16:58] LABS: ALBUMIN 3.7 g/dL (3.5-5.0); POTASSIUM 3.7 mmol/L (3.5-5.1); TOTAL PROTEIN, SERUM 7.8 g/dL (6.0-8.3)
[2022-01-05 17:09] LABS: ROCKY MT SPOTTED FEVER IGG <1:64 (Neg:<1:64); ROCKY MT SPOTTED FEVER IGM <1:64 (Neg:<1:64); TYPHUS FEVER AB IGG <1:64 (Neg:<1:64); TYPHUS FEVER AB IGM <1:64 (Neg:<1:64)
== END | disposition home or self-care (01) ==
LOC: LAB 15:50
PROVIDERS: ATTEND Family Medicine
DX: S80.862A Insect bite (nonvenomous), left lower leg, initial encounter (principal); L03.116 Cellulitis of left lower limb; X58.XXXA Exposure to other specified factors, initial encounter; Y93.89 Activity, other specified; Y92.89 Other specified places as the place of occurrence of the external cause; Y99.8 Other external cause status
CPT/HCPCS: 36415; 80053; 85025; 86757; 87070; 87076; 87077; 87186

== ENCOUNTER → 2022-01-08 | Outpatient (CLI) | payer OTHER ==
[2022-01-08 09:07] LABS: BASOPHILS % (AUTO) 1.1 % (0.0-5.0); EOSINOPHILS % (AUTO) 4.7 % (0.0-8.0); HEMATOCRIT 43.1 % (42-54); LYMPHOCYTES % (AUTO) 47.3 % (21.0-51.0); MEAN CORPUSCULAR HEMOGLOBIN 27.2 pg (27.0-33.0); MEAN CORPUSCULAR HGB CONC 32.9 g/dL (32.0-36.0); MEAN CORPUSCULAR VOLUME 82.6 fL (79-99); MONOCYTES % (AUTO) 7.9 % (3.0-13.0); NEUTROPHILS % (AUTO) 38.6 % (40.0-77.0); PLATELET COUNT (AUTO) 171 K/uL (130-400); RED BLOOD CELL COUNT(AUTO) 5.22 MIL/uL (4.50-6.20); RED CELL DISTRIBUTION WIDTH 13.9 % (11.0-15.5); WHITE BLOOD COUNT (AUTO) 5.3 K/uL (4.8-10.8)
[2022-01-08 09:16] LABS: HEMOGLOBIN A1C 6.1 % (4.0-6.0)
[2022-01-08 09:47] LABS: ALBUMIN 3.5 g/dL (3.5-5.0); POTASSIUM 3.7 mmol/L (3.5-5.1); THYROID STIMULATING HORMONE 2.74 uIU/mL (0.36-3.74); TOTAL PROTEIN, SERUM 7.6 g/dL (6.0-8.3)
== END | disposition home or self-care (01) ==
LOC: RAH 07:35
PROVIDERS: ATTEND Family Medicine
DX: L03.116 Cellulitis of left lower limb (principal)
CPT/HCPCS: 36415; 76882; 80053; 80061; 82043; 82306; 82607; 83036; 84443; 85025

== ENCOUNTER → 2022-08-03 | Outpatient (CLI) | payer OTHER ==
[2022-08-03 10:39] LABS: BASOPHILS % (AUTO) 0.7 % (0.0-5.0); HEMATOCRIT 45.5 % (42-54); LYMPHOCYTES % (AUTO) 51.3 % (21.0-51.0); MEAN CORPUSCULAR HEMOGLOBIN 27.6 pg (27.0-33.0); MEAN CORPUSCULAR HGB CONC 32.7 g/dL (32.0-36.0); MEAN CORPUSCULAR VOLUME 84.3 fL (79-99); MONOCYTES % (AUTO) 7.6 % (3.0-13.0); PLATELET COUNT (AUTO) 148 K/uL (130-400); RED CELL DISTRIBUTION WIDTH 13.6 % (11.0-15.5); WHITE BLOOD COUNT (AUTO) 5.5 K/uL (4.8-10.8)
[2022-08-03 10:50] LABS: HEMOGLOBIN A1C 5.2 % (4.0-6.0)
[2022-08-03 11:19] LABS: ALBUMIN 3.7 g/dL (3.5-5.0); POTASSIUM 3.8 mmol/L (3.5-5.1); THYROID STIMULATING HORMONE 2.47 uIU/mL (0.36-3.74); TOTAL PROTEIN, SERUM 7.3 g/dL (6.0-8.3)
== END | disposition home or self-care (01) ==
LOC: LAB 10:00
PROVIDERS: ATTEND Family Medicine
DX: I10 Essential (primary) hypertension (principal); E66.01 Morbid (severe) obesity due to excess calories; R73.03 Prediabetes
CPT/HCPCS: 36415; 80053; 80061; 82043; 82306; 82570; 82607; 83036; 84153; 84443; 85025

== ENCOUNTER → 2022-11-10 | Outpatient (CLI) | payer OTHER ==
[2022-11-10 10:25] LABS: BASOPHILS % (AUTO) 0.7 % (0.0-5.0); EOSINOPHILS % (AUTO) 1.5 % (0.0-8.0); HEMATOCRIT 41.8 % (42-54); LYMPHOCYTES % (AUTO) 46.5 % (21.0-51.0); MEAN CORPUSCULAR HEMOGLOBIN 27.8 pg (27.0-33.0); MEAN CORPUSCULAR HGB CONC 32.5 g/dL (32.0-36.0); MEAN CORPUSCULAR VOLUME 85.3 fL (79-99); MONOCYTES % (AUTO) 7.5 % (3.0-13.0); NEUTROPHILS % (AUTO) 43.2 % (40.0-77.0); PLATELET COUNT (AUTO) 150 K/uL (130-400); RED CELL DISTRIBUTION WIDTH 14.5 % (11.0-15.5); WHITE BLOOD COUNT (AUTO) 7.2 K/uL (4.8-10.8)
[2022-11-10 10:49] LABS: APPEARANCE,URINE CLEAR (CLEAR); BILIRUBIN,URINE NEGATIVE (NEGATIVE); COLOR,URINE YELLOW (YELLOW); GLUCOSE, URINE (UA) NEGATIVE (NEGATIVE); KETONES,URINE NEGATIVE (NEGATIVE); LEUKOCYTE ESTERASE ,URINE NEGATIVE Leu/uL (NEGATIVE); NITRATE,URINE NEGATIVE (NEGATIVE); OCCULT BLOOD,URINE NEGATIVE (NEGATIVE); PH,URINE 5.5 (5.0-8.0); PROTEIN,URINE 20 mg/dL (NEGATIVE); UROBILINOGEN,URINE 0.2 mg/dL (0.2-1.0)
[2022-11-10 10:55] LABS: MUCUS,URINE FEW LPF (None Seen); RBC,URINE 0-1 /HPF (0-1); SQUAMOUS EPITHELIAL CELL,UR RARE /HPF (0-2); WBC,URINE 0-1 /HPF (0-1)
[2022-11-10 10:58] LABS: ALBUMIN 3.4 g/dL (3.5-5.0); POTASSIUM 3.8 mmol/L (3.5-5.1); THYROID STIMULATING HORMONE 2.81 uIU/mL (0.36-3.74); TOTAL PROTEIN, SERUM 7.1 g/dL (6.0-8.3)
[2022-11-10 12:10] LABS: HEMOGLOBIN A1C 5.5 % (4.0-6.0)
== END | disposition home or self-care (01) ==
LOC: LAB 08:21
PROVIDERS: ATTEND Family Medicine
DX: I10 Essential (primary) hypertension (principal); E66.01 Morbid (severe) obesity due to excess calories; R73.03 Prediabetes
CPT/HCPCS: 36415; 80053; 80061; 81001; 82043; 82570; 83036; 84443; 85025

== ENCOUNTER → 2022-11-25 | Outpatient (CLI) | payer OTHER ==
[~2022-11-25] MED LIST changes: +GADOTERATE MEGLUMINE 10 MMOL/20 ML VIAL IV ONE
== END | disposition home or self-care (01) ==
LOC: RAH 09:02
PROVIDERS: ATTEND Family Medicine
DX: M75.101 Unspecified rotator cuff tear or rupture of right shoulder, not specified as traumatic (principal); M25.511 Pain in right shoulder
CPT/HCPCS: 73223; A9575

== ENCOUNTER → 2023-01-26 | Outpatient (CLI) | payer OTHER ==
[~2023-01-26] MED LIST changes: -GADOTERATE MEGLUMINE 10 MMOL/20 ML VIAL IV ONE
[2023-01-26 09:52] LABS: BASOPHILS # (AUTO) 0.05 K/uL (0.00-0.20); BASOPHILS % (AUTO) 0.8 % (0.0-5.0); EOSINOPHILS # (AUTO) 0.18 K/uL (0.00-0.70); EOSINOPHILS % (AUTO) 2.8 % (0.0-8.0); HEMATOCRIT 44.1 % (42-54); IMMATURE GRANULOCYTE ABSOLUTE 0.03 K/uL (0-1); LYMPHOCYTES % (AUTO) 46.1 % (21.0-51.0); MEAN CORPUSCULAR HEMOGLOBIN 28.6 pg (27.0-33.0); MEAN CORPUSCULAR HGB CONC 32.9 g/dL (32.0-36.0); MONOCYTES # (AUTO) 0.5 K/uL (0.1-1.0); MONOCYTES % (AUTO) 7.1 % (3.0-13.0); NEUTROPHILS # (AUTO) 2.8 K/uL (1.8-7.7); NEUTROPHILS % (AUTO) 42.7 % (40.0-77.0); PLATELET COUNT (AUTO) 181 K/uL (130-400); RED BLOOD CELL COUNT(AUTO) 5.07 MIL/uL (4.50-6.20); RED CELL DISTRIBUTION WIDTH 13.7 % (11.0-15.5); WHITE BLOOD COUNT (AUTO) 6.5 K/uL (4.8-10.8)
[2023-01-26 10:00] LABS: HEMOGLOBIN A1C 5.5 % (4.0-6.0)
[2023-01-26 10:29] LABS: ALBUMIN 3.8 g/dL (3.5-5.0); BILIRUBIN,TOTAL 0.4 mg/dL (0.2-1.0); CREATININE 0.9 mg/dL (0.5-1.5); POTASSIUM 4.2 mmol/L (3.5-5.1); THYROID STIMULATING HORMONE 2.67 uIU/mL (0.36-3.74); TOTAL PROTEIN, SERUM 7.4 g/dL (6.0-8.3)
== END | disposition home or self-care (01) ==
LOC: LAB 08:53
PROVIDERS: ATTEND Family Medicine
DX: I10 Essential (primary) hypertension (principal); R73.03 Prediabetes; K21.9 Gastro-esophageal reflux disease without esophagitis
CPT/HCPCS: 36415; 80053; 80061; 82043; 82306; 82570; 82607; 83036; 84443; 85025